=== PATIENT | female | born 1965 | race Caucasian/White ===

== ENCOUNTER 2016-09-04 10:34 | Emergency (ER) | payer MEDICAID ==
--- OUTSIDE RECORDS SUMMARY | 2016-09-04 10:51 | XMS REPORT | Continuity of Care Document ---
:1965 Author Organization [facility] ([facility]) Address [address] [place] [address] Phone [phone] Care Team Providers Name Role Phone Unavailable Primary Care Provider Unavailable Source Comments This disclosure is being made pursuant to the Care Everywhere program, applicable federal and state laws, and may not contain all informaitonavailable regarding this patient.[facility] ([facility]) Active Allergies and Adverse Reactions Not on File Current Medications Not on file Active Problems Not on file Social History Tobacco Use Types Packs/Day Years Used Date Never Assessed Last Filed Vital Signs Vital Sign Reading Time Taken Blood Pressure - - Pulse - - Temperature - - Respiratory Rate - - Height 1.6 m (5' 3") 07/25/2003 5:45 PM [employer] Weight 70.308 kg (155 lb) 07/25/2003 5:45 PM [employer] SE[employer] Body Mass Index 27.46 07/25/2003 5:45 PM [employer] SEAL[employer] Oxygen Saturation - - Plan of Care Health Maintenance Due Date Last Done Comments Hepatitis B Vaccine (1 of 3 - Primary Series) 1965 Tdap Vaccine 11/09/1978 Lipid Disorder Screening 11/09/1985 MMR Vaccine 11/09/1985 Td Vaccine 11/09/1985 Cervical Cancer Screening 11/09/1997 Mammogram 2007 Influenza Vaccine: Seasonal (#1) 11/29/2015 Results from Last 3 Months Not on file
[2016-09-04 11:22] LABS: Hematocrit 40.8 % (37.0-47.0); Hemoglobin 14.1 gm/dL (12.5-16.0); Mean Cell Volume 89.3 fl (78-100); Mean Corpuscular Hemoglobin 30.9 pg (27-31); Mean Corpuscular Hgb Conc 34.6 g/dl (32-36); Mean Platelet Volume 11.5 fl (6.0-9.5); Neutrophil # 5.4 K/mm3 (1.3-6.0); Neutrophil % 66.2 % (42-75.0); Platelet Count 152 K/mm3 (150-450); Red Blood Count 4.57 M/mm3 (4.2-5.4); Red Cell Distribution Width 12.7 % (11.5-14.0); White Blood Count 8.2 K/mm3 (4.0-10.5)
[2016-09-04 11:39] LABS: Albumin * 3.9 gm/dl (3.4-5.0); Anion Gap 16.6 mmol/L (6.8-13.8); BUN/Creatinine Ratio 11.8 (9.0-21.6); Bilirubin, Total 0.4 mg/dL (0.0-1.1); Ca. Corrected For Albumin 8.7 mg/dL (8.4-10.2); Calcium * 8.9 mg/dL (7.9-10.9); Carbon Dioxide 24.1 mmol/L (24-32.6); Potassium 3.7 mmol/L (3.4-4.6); Total Protein 7.5 gm/dL (6.2-8.2); Troponin I 0.041 ng/ml (0.00-0.10)
--- NOTE | 2016-09-04 12:17 | ERNOTE ---
Chest Pain/Cardiac HPI Date of Service: 09/04/16 Chief Complaint: Chest Pain Time Seen by Provider: 09/04/16 10:45 Source: patient Exam Limitations: no limitations Immunizations: IMMUNIZATION HX Immunizations Up to Date Yes History of Influenza Vaccine Yes Hx Pneumococcal Vaccination No Allergies/Adverse Reactions: Allergies carisoprodol Allergy (Verified 09/04/16 10:44) codeine [Codeine] Allergy (Verified 09/04/16 10:44) gemfibrozil Allergy (Verified 09/04/16 10:44) ibuprofen Allergy (Verified 09/04/16 10:44) loratadine Allergy (Verified 09/04/16 10:44) risperidone [From Risperdal] Allergy (Verified 09/04/16 10:44) azithromycin Adverse Reaction (Intermediate, Verified 09/04/16 10:44) Other Home Medications: HOME MEDICATIONS ALPRAZolam [Xanax] 0.5 mg PO BID PRN 01/20/14 [Last Taken Unknown] Albuterol Sulfate [Albuterol Sulfate 2.5 MG/0.5ML] 1 vial IH Q4H PRN 01/20/14 [ Last Taken Unknown] Famotidine [Pepcid AC] 20 mg PO BID 01/20/14 [Last Taken Unknown] Fluticasone Propionate [Flonase] 1 spray NS BID 01/20/14 [Last Taken Unknown] Fluticasone/Salmeterol [Advair 250-50 Diskus] 1 puff IH BID 01/20/14 [Last Taken Unknown] Oxybutynin Chloride [Ditropan] 5 mg PO TID 01/20/14 [Last Taken Unknown] Zolpidem Tartrate [Ambien] 5 mg PO HS PRN 01/20/14 [Last Taken Unknown] Diphenhydramine HCl [[place]] 50 mg PO Q6H PRN #40 tablet 05/28/14 [Last Taken Unknown] Cetirizine HCl [Zyrtec] 10 mg PO DAILY 02/02/15 [Last Taken Unknown] Tiotropium [place] [Spiriva] 1 cap IH DAILY 02/02/15 [Last Taken Unknown] Cyclobenzaprine HCl [Flexeril] 10 mg PO TID PRN #30 tab 12/24/15 [Last Taken Unknown] oxyCODONE HCL/ACETAMINOPHEN [Percocet 5 MG/325 MG] 1 tab PO Q4H PRN #20 tab [Last Taken Unknown] Narrative: Patient presents to the ED for chest pain. She relates she has been having chest pains for 2 months now. Daily. 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 She stopped that after a few weeks but the Sx never went away. She relates chest tightness and SOB with exertion and she feels this up into her neck. This has been daily and is worse with exertion. This is prolonged adn constant but worse with exertion. No fever or increased cough. She has never had a CP work up and was scheduled for a stress test in the past but couldn't get there so missed this testing. SHe did not have a ride to get here so wanted several weeks to be seen. Timing: constant, other - fluctuating intensity Severity/Quality: moderate Location: central Activities at Onset: none Modifying Factors - Improves: Present: nothing Modifying Factors - Worsens: Present: exercise Associated Symptoms: Present: shortness of breath. Absent: headache, cough, fever/chills, vomiting, abdominal pain Prior Chest Pain/Cardiac Workup: Reports: no prior cardiac workup Prior Treatment: Denies: recently seen Review of Systems - Review of Systems Constitutional: Absent: fever Respiratory: Present: See HPI Cardiology: Present: See HPI Gastrointestinal/Abdominal: Absent: abdominal pain Neurological: Absent: weakness All Other Systems: All systems neg except as marked - Patient's Past Medical History Patient History - Medical: Anxiety, Bipolar, Chronic Pain, Depression, GERD, Obesity Patient History - Cardiac/Respiratory: COPD Patient History - Cancer: Cervical Patient History - Surgical Procedures: D & C, Tubal Ligation, T & A, Other Patient History - Other: Other LMP (females 10-50): other - Family History Mother Family History - Medical: Family History - Cardiac/Respiratory: CHF, COPD Father Family History - Medical: Family History - Cardiac/Respiratory: Cardiac Arrest, Other - Social History Living Situations: home Abuse History: Hx of Substance Use Psych History: Hx of Anxiety, Hx of Depression, Current tx/ever been on anti- depressants or anti-anxiety meds Smoking Status: Current every day smoker Alcohol Use: none Drug Use: none - Immunizations Immunizations Up to Date: Yes Hx Pneumococcal Vaccination: No History of Influenza Vaccine: Yes Physical Exam - Physical Exam General Appearance: Present: alert, no apparent distress Eye Exam: Normal inspection: bilateral, PERRL: bilateral Ears, Nose, Throat: Present: normal ENT inspection Neck: Present: normal inspection Respiratory: Present: no respiratory distress, normal breath sounds, no accessory muscle use Cardiovascular/Chest: Present: regular rate, rhythm, normal peripheral pulses Gastrointestinal/Abdominal: Present: normal bowel sounds, nontender, soft Back Exam: Present: normal range of motion Extremity Exam: Present: normal inspection, other - she has some trace edema that she states in normal for her. No calf pain, no DVT Sx. Neurological Exam: Present: alert, normal mood/affect, no motor/sensory deficits Skin Exam: Present: normal color, warm/dry. Absent: skin rash ED Progress - Results and Orders Patient's Lab Results:: I have reviewed the patient's lab results. - Vital Signs Patient's Vital Signs:: I have reviewed the patient's vital signs. Vital Signs: Vital Signs 09/04/16 09/04/16 09/04/16 10:37 11:04 11:24 Temperature 37.2 C 36.9 C Pulse Rate 82 94 84 Respiratory 16 24 H 14 Rate Blood Pressure 169/85 169/85 128/82 O2 Sat by Pulse 97 95 97 Oximetry - EKG EKG: NSR EKG read: Interp. by me EKG Comments: Non-specific changes. No STEMI. Rate 87. - X-Ray X-Ray #1 X-Ray: chest Interpretation: Interp. by me X-ray Comments: I reviewed official radiology report. - Progress/Reassessment Chief Complaint: Chest Pain Progress Note-Subjective: 09/04/16 12:10 Atypical CP but Hx of CAD in family and no prior stress stress testing. No evidence of PE or aortic dissection clinically, d-dimer in normal range, no indication for CT. No evidence of ACS with prolonged constant Sx and negative trop. No other clear etiology. She has difficulty getting ot the hospital and needs a stress test in further w/u. I spoke with Dr Calles who was kind enough to do stress testing today. She will be discharged to stress testing. I was informed by nursing that policy here is to discharge the patient from the ED to go to stress testing which will be done. 09/04/16 12:16 Departure - Departure Clinical Impression: Atypical chest pain Disposition: Home self-care Condition: Stable Additional Instructions: You will go to stress testing today. Follow-up will be determined based on your stress test result. Return if your condition worsens or changes in any way. Referrals: Sheryl Tillman FNP [Primary Care Provider] -
[2016-09-04] MEDS ORDERED: PANTOPRAZOLE SODIUM 40 MG TABLET.EC PO ONE (16:43)
[2016-09-04 21:19] VITALS: BP 115/67
== END 2016-09-04 17:05 | disposition home or self-care (01) ==
LOC: ER 10:34
DX: R07.89 Other chest pain (principal); Z72.0 Tobacco use; Z85.41 Personal history of malignant neoplasm of cervix uteri; F41.8 Other specified anxiety disorders; G89.29 Other chronic pain; K21.9 Gastro-esophageal reflux disease without esophagitis; J44.9 Chronic obstructive pulmonary disease, unspecified
CPT/HCPCS: 36415; 71020; 78452; 80053; 83690; 84484; 85025; 85379; 93005; 93017; 99284; A9502

== ENCOUNTER 2016-10-24 15:34 | Emergency (ER) | payer MEDICAID ==
[2016-10-24] MEDS ORDERED: KETOROLAC TROMETHAMINE 60 MG/2 ML VIAL IM ONE ×2 (16:12→16:17)
[2016-10-24] MEDS ORDERED: DIAZEPAM 5 MG/ML SYRG IM ONE (16:12)
[2016-10-24] MEDS ORDERED: DIAZEPAM 5 MG/ML SYRG ONE (16:17)
--- NOTE | 2016-10-24 16:17 | ERNOTE ---
Back Pain ER HPI Date of Service: 10/24/16 Presenting Symptoms: injury/pain to back, hx chronic back pain Time Seen by Provider: 10/24/16 15:52 Source: patient, RN notes reviewed, past records Exam Limitations: no limitations Immunizations: IMMUNIZATION HX Immunizations Up to Date Yes History of Influenza Vaccine Yes Hx Pneumococcal Vaccination No Allergies/Adverse Reactions: Allergies carisoprodol Allergy (Verified 10/24/16 15:44) codeine [Codeine] Allergy (Verified 10/24/16 15:44) gemfibrozil Allergy (Verified 10/24/16 15:44) ibuprofen Allergy (Verified 10/24/16 15:44) loratadine Allergy (Verified 10/24/16 15:44) risperidone [From Risperdal] Allergy (Verified 10/24/16 15:44) azithromycin Adverse Reaction (Intermediate, Verified 10/24/16 15:44) Other Home Medications: HOME MEDICATIONS ALPRAZolam [Xanax] 0.5 mg PO BID PRN 01/20/14 [Last Taken Unknown] Albuterol Sulfate [Albuterol Sulfate 2.5 MG/0.5ML] 1 vial IH Q4H PRN 01/20/14 [ Last Taken Unknown] Famotidine [Pepcid AC] 20 mg PO BID 01/20/14 [Last Taken Unknown] Fluticasone Propionate [Flonase] 1 spray NS BID 01/20/14 [Last Taken Unknown] Fluticasone/Salmeterol [Advair 250-50 Diskus] 1 puff IH BID 01/20/14 [Last Taken Unknown] Oxybutynin Chloride [Ditropan] 5 mg PO TID 01/20/14 [Last Taken Unknown] Zolpidem Tartrate [Ambien] 5 mg PO HS PRN 01/20/14 [Last Taken Unknown] Cetirizine HCl [Zyrtec] 10 mg PO DAILY 02/02/15 [Last Taken Unknown] Tiotropium [place] [Spiriva] 1 cap IH DAILY 02/02/15 [Last Taken Unknown] Cyclobenzaprine HCl [Flexeril] 10 mg PO TID PRN #30 tab 12/24/15 [Last Taken Unknown] HYDROcodone/ACETAMINOPHEN [[place] 5-325] 1 - 2 tab PO Q6H PRN #16 tab 10/24/16 [ Last Taken Unknown] Narrative: 50 y/o female ambulatory to the ED for low back pain that began approximately 5 days ago when she "twisted wrong" while showering. She is having pain in her right lumbar region radiating in to her right hip and leg. She has a history of chronic back pain. She saw her PCP a week ago. She was prescribed Flexeril and instructed to contact her back specialist. She has only been taking the Flexeril at bedtime. She has been taking aspirin for pain. She reports being allergic to ibuprofen but has taken Toradol in the past without incident. She reports that she has not been able to see her back specialist because of issues with transportation. Quality/Severity: Reports: severe, aching, dullness Location of pain: Reports: lower back, radiating to rt thigh/leg Activities at Onset: Reports: activity Recent Injury?: Reports: possibly Possible Precipitating Factor: Reports: turning/bending Modifying Factors - (Improves): Reports: nothing Modifying Factors - (Worsens): Reports: supine position Associated Symptoms: Reports: sweating. Denies: fever/chills, constipation/ incontinence, nausea/vomiting, problems urinating, difficulty walking, numbess/ weakness in legs Review of Systems - Review of Systems Constitutional: Absent: recent illness, fever, chills EYE: Present: no symptoms reported ENT: Present: no symptoms reported Respiratory: Present: cough. Absent: shortness of breath Cardiology: Present: no symptoms reported Gastrointestinal/Abdominal: Absent: nausea, vomiting, abdominal pain Genitourinary: Absent: dysuria, hematuria Musculoskeletal: Present: back pain, muscle pain. Absent: neck pain, joint pain , joint swelling Skin: Absent: rash, lesions, lumps Neurological: Present: tingling. Absent: headache, dizziness/light-headedness, weakness, numbness Endocrine: Present: no symptoms reported Hematologic/Lymphatic: Present: no symptoms reported Psych: Present: anxiety - Patient's Past Medical History Patient History - Medical: Anxiety, Bipolar, Chronic Pain, Depression, GERD, Obesity Patient History - Cardiac/Respiratory: COPD Patient History - Cancer: Cervical Patient History - Surgical Procedures: D & C, Tubal Ligation, T & A, Other Patient History - Other: Other LMP (females 10-50): 5-6 year - Family History Mother Family History - Medical: Family History - Cardiac/Respiratory: CHF, COPD Father Family History - Medical: Family History - Cardiac/Respiratory: Cardiac Arrest, Other - Social History Living Situations: home Abuse History: Hx of Substance Use Psych History: Hx of Anxiety, Hx of Depression, Current tx/ever been on anti- depressants or anti-anxiety meds Smoking Status: Current every day smoker Alcohol Use: none Drug Use: none - Immunizations Immunizations Up to Date: Yes Hx Pneumococcal Vaccination: No History of Influenza Vaccine: Yes Physical Exam - Physical Exam General Appearance: Present: alert, mild distress, anxious, obese Neck: Present: normal inspection, nontender, supple, full range of motion Respiratory: Present: no respiratory distress, no accessory muscle use, expiration (prolonged), wheezing - mild Cardiovascular/Chest: Present: regular rate, rhythm, no murmur, normal peripheral pulses Peripheral Pulses: N=norm/S=strong/W=weak/B=bound/A=absent: Dorsalis-pedis (R): Strong, Dorsalis-pedis (L): Strong Back Exam: Present: no CVA tenderness, no vertebral tenderness, decreased range of motion, other - Right lumbar region paraspinal muscle tenderness with palpation Extremity Exam: Present: normal inspection, normal range of motion Neurological Exam: Present: alert, oriented, normal mood/affect, no motor/ sensory deficits, other - normal lower extremity strength against resistance DTR: N=norm/NB=norm/brisk/A=abs/DD=dull/dimin/HC=hyperactive: Knee (R): Normal/ Brisk, Knee (L): Normal/Brisk Skin Exam: Present: normal color, warm/dry ED Progress - Vital Signs Patient's Vital Signs:: I have reviewed the patient's vital signs. Vital Signs: Vital Signs 10/24/16 15:36 Temperature 37.2 C Pulse Rate 100 Respiratory 22 H Rate Blood Pressure 166/79 O2 Sat by Pulse 96 Oximetry - Progress/Reassessment Chief Complaint: Back Pain Progress:: Improved Departure Clinical Impression: Low back pain Qualifiers: Chronicity: acute Back pain laterality: right Sciatica presence: with sciatica Sciatica laterality: sciatica of right side Qualified Code(s): M54.41 - Lumbago with sciatica, right side - Departure Disposition: Home Follow Up Needed Condition: Stable Instructions: Back Pain, Adult, [id number] Additional Instructions: Take Flexeril 3 times a day Talk to Sheryl about physical therapy or possibly seeing a back specialist in [place] Referrals: Sheryl Tillman, I[employer] TRA[employer]ER [Primary Care Provider] - Prescriptions: HYDROcodone/ACETAMINOPHEN [[place] 5-325] 1 - 2 tab PO Q6H PRN #16 tab PRN Reason: Pain
[2016-10-24 16:45] VITALS: BP 158/70
== END 2016-10-24 16:43 | disposition home or self-care (01) ==
LOC: ER 15:34
DX: M54.41 Lumbago with sciatica, right side (principal); Z85.41 Personal history of malignant neoplasm of cervix uteri; J44.9 Chronic obstructive pulmonary disease, unspecified; F41.9 Anxiety disorder, unspecified; F17.200 Nicotine dependence, unspecified, uncomplicated

== ENCOUNTER 2017-02-01 21:32 | Emergency (ER) | payer MEDICAID ==
--- NOTE | 2017-02-01 22:25 | ERNOTE ---
Time Seen by Provider: 02/01/17 22:11 Stated Complaint: URI SYMPTOMS Presenting Symptoms:: cough Source: patient Immunizations: IMMUNIZATION HX Immunizations Up to Date No History of Influenza Vaccine No Hx Pneumococcal Vaccination No Allergies/Adverse Reactions: Allergies carisoprodol Allergy (Verified 02/01/17 21:35) codeine [Codeine] Allergy (Verified 02/01/17 21:35) gemfibrozil Allergy (Verified 02/01/17 21:35) ibuprofen Allergy (Verified 02/01/17 21:35) loratadine Allergy (Verified 02/01/17 21:35) risperidone [From Risperdal] Allergy (Verified 02/01/17 21:35) azithromycin Adverse Reaction (Intermediate, Verified 02/01/17 21:35) Other Home Medications: HOME MEDICATIONS ALPRAZolam [Xanax] 0.5 mg PO BID PRN 01/20/14 [Last Taken Unknown] Albuterol Sulfate [Albuterol Sulfate 2.5 MG/0.5ML] 1 vial IH Q4H PRN 01/20/14 [ Last Taken Unknown] Famotidine [Pepcid AC] 20 mg PO BID 01/20/14 [Last Taken Unknown] Fluticasone Propionate [Flonase] 1 spray NS BID 01/20/14 [Last Taken Unknown] Fluticasone/Salmeterol [Advair 250-50 Diskus] 1 puff IH BID 01/20/14 [Last Taken Unknown] Oxybutynin Chloride [Ditropan] 5 mg PO TID 01/20/14 [Last Taken Unknown] Zolpidem Tartrate [Ambien] 5 mg PO HS PRN 01/20/14 [Last Taken Unknown] Cetirizine HCl [Zyrtec] 10 mg PO DAILY 02/02/15 [Last Taken Unknown] Tiotropium [place] [Spiriva] 1 cap IH DAILY 02/02/15 [Last Taken Unknown] Cyclobenzaprine HCl [Flexeril] 10 mg PO TID PRN #30 tab 12/24/15 [Last Taken Unknown] HYDROcodone/ACETAMINOPHEN [[place] 5-325] 1 - 2 tab PO Q6H PRN #16 tab 10/24/16 [ Last Taken Unknown] Amoxicillin 875 mg PO BID #20 tablet 02/01/17 [Last Taken Unknown] Atorvastatin Calcium [Lipitor] 20 mg PO DAILY 02/01/17 [Last Taken Unknown] - History of Present Ilness Narrative: Pt has been coughing for approx 2 weeks, accompanied by nasal discharge and increased sputum production Timing: getting worse Severity: moderate Frequency/Possible Cause: Reports: occasional episodes Modifying Factors - Worsens: Reports: activity, deep breath, lying down Associated Symptoms: Reports: wheezing, nasal congestion, nasal drainage Review of Systems - Review of Systems Constitutional: Present: recent illness, fatigue. Absent: fever, chills EYE: Present: no symptoms reported ENT: Present: nose congestion, nasal drainage Respiratory: Present: See HPI, orthopnea Cardiology: Present: no symptoms reported Gastrointestinal/Abdominal: Present: no symptoms reported Genitourinary: Present: no symptoms reported Musculoskeletal: Present: no symptoms reported Skin: Present: no symptoms reported Neurological: Present: no symptoms reported Endocrine: Present: no symptoms reported Hematologic/Lymphatic: Present: no symptoms reported Psych: Present: no symptoms reported - Patient's Past Medical History Patient History - Medical: Anxiety, Bipolar, Chronic Pain, Depression, GERD, Obesity Patient History - Cardiac/Respiratory: COPD Patient History - Cancer: Cervical Patient History - Surgical Procedures: D & C, Tubal Ligation, T & A, Other Patient History - Other: Other LMP (females 10-50): last week LMP (Calendar): 01/28/17 - Family History Mother Family History - Medical: Family History - Cardiac/Respiratory: CHF, COPD Father Family History - Medical: Family History - Cardiac/Respiratory: Cardiac Arrest, Other - Social History Living Situations: home Abuse History: Hx of Substance Use Psych History: Hx of Anxiety, Hx of Depression, Current tx/ever been on anti- depressants or anti-anxiety meds Smoking Status: Current every day smoker Have you smoked in the past 12 months: Yes Do you dip or chew tobacco: No Alcohol Use: none Drug Use: none - Immunizations Immunizations Up to Date: No Hx Pneumococcal Vaccination: No History of Influenza Vaccine: No Physical Exam - Physical Exam General Appearance: Present: wd/wn, alert, no apparent distress Head Exam: Present: normal inspection, no evidence of injury Eye Exam: Normal inspection: bilateral Ears, Nose, Throat: Present: nasal congestion, sinus pain/drainage Neck: Present: normal inspection, nontender Respiratory: Present: no respiratory distress, no accessory muscle use, crackles , wheezing Cardiovascular/Chest: Present: regular rate, rhythm, no murmur Back Exam: Present: normal inspection, normal range of motion, no vertebral tenderness Extremity Exam: Present: normal inspection, normal range of motion, no edema Neurological Exam: Present: alert, oriented, normal mood/affect Skin Exam: Present: normal color, warm/dry ED Progress - Results and Orders Patient's Lab Results:: I have reviewed the patient's lab results. Results and Orders: Laboratory Tests 02/01/17 22:39 WBC 8.9 Hgb 14.7 Hct 43.1 Plt Count 165 - Vital Signs Vital Signs: Vital Signs 02/01/17 21:36 Temperature 36.3 C L Pulse Rate 76 Respiratory 16 Rate Blood Pressure 144/81 O2 Sat by Pulse 96 Oximetry - X-Ray X-Ray #1 X-Ray: chest Interpretation: Interp. by ks X-ray Comments: mild hyperinflation, no infiltrate or effusion - Progress/Reassessment Chief Complaint: Cough Departure Clinical Impression: Acute exacerbation of COPD with asthma - Departure Disposition: Home Follow Up Needed Condition: Good Instructions: Chronic Obstructive Pulmonary Disease Exacerbation, [id number] Prescriptions: Amoxicillin 875 mg PO BID #20 tablet
[2017-02-01 22:43] LABS: Hematocrit 43.1 % (37.0-47.0); Hemoglobin 14.7 gm/dL (12.5-16.0); Mean Cell Volume 91.7 fl (78-100); Mean Corpuscular Hemoglobin 31.3 pg (27-31); Mean Corpuscular Hgb Conc 34.1 g/dl (32-36); Mean Platelet Volume 11.6 fl (6.0-9.5); Neutrophil # 6.5 K/mm3 (1.3-6.0); Neutrophil % 73.7 % (42-75.0); Platelet Count 165 K/mm3 (150-450); Red Cell Distribution Width 12.8 % (11.5-14.0); White Blood Count 8.9 K/mm3 (4.0-10.5)
[2017-02-01 22:47] VITALS: BP 144/68
[2017-02-01] MEDS ORDERED: AMOXICILLIN TRIHYDRATE 250 MG CAPSULE PO ONE (22:58)
[2017-02-01] MEDS ORDERED: AMOXICILLIN TRIHYDRATE 250 MG CAPSULE ONE (22:59)
== END 2017-02-01 23:04 | disposition home or self-care (01) ==
LOC: ER 21:32
DX: J44.1 Chronic obstructive pulmonary disease with (acute) exacerbation (principal); F17.200 Nicotine dependence, unspecified, uncomplicated; Z85.41 Personal history of malignant neoplasm of cervix uteri; F41.9 Anxiety disorder, unspecified; F32.9 Major depressive disorder, single episode, unspecified; K21.9 Gastro-esophageal reflux disease without esophagitis

== ENCOUNTER 2017-02-25 23:05 | Emergency (ER) | payer MEDICAID ==
[2017-02-25] MEDS ORDERED: MORPHINE SULFATE 4 MG/ML SYRG IV ONE (23:33)
[2017-02-25] MEDS ORDERED: DICYCLOMINE HCL 10 MG/ML AMPUL IM ONE ×2 (23:33→23:37)
[2017-02-25] MEDS ORDERED: NORMAL SALINE 1,000 ML IV ONE (23:34)
[2017-02-25] MEDS ORDERED: ONDANSETRON HCL/PF 2 MG/ML VIAL IV ONE (23:36)
[2017-02-25] MEDS ORDERED: ONDANSETRON HCL/PF 2 MG/ML VIAL ONE (23:37)
[2017-02-25] MEDS ORDERED: MORPHINE SULFATE 4 MG/ML SYRG ONE (23:37)
--- NOTE | 2017-02-25 23:52 | ERNOTE ---
Abdominal HPI - Narrative Date of Service: 02/25/17 - General Chief Complaint: Abdominal Pain Time Seen by Provider: 02/25/17 23:32 Source: patient - Immun/Allergies/Home Medications Immunizatons: IMMUNIZATION HX Immunizations Up to Date Yes History of Influenza Vaccine Yes Hx Pneumococcal Vaccination No Allergies/Adverse Reactions: Allergies carisoprodol Allergy (Verified 02/25/17 23:24) codeine [Codeine] Allergy (Verified 02/25/17 23:24) gemfibrozil Allergy (Verified 02/25/17 23:24) ibuprofen Allergy (Verified 02/25/17 23:24) loratadine Allergy (Verified 02/25/17 23:24) risperidone [From Risperdal] Allergy (Verified 02/25/17 23:24) azithromycin Adverse Reaction (Intermediate, Verified 02/25/17 23:24) Other Home Medications: HOME MEDICATIONS ALPRAZolam [Xanax] 0.5 mg PO BID PRN 01/20/14 [Last Taken Unknown] Albuterol Sulfate [Albuterol Sulfate 2.5 MG/0.5ML] 1 vial IH Q4H PRN 01/20/14 [ Last Taken Unknown] Famotidine [Pepcid AC] 20 mg PO BID 01/20/14 [Last Taken Unknown] Fluticasone Propionate [Flonase] 1 spray NS BID 01/20/14 [Last Taken Unknown] Fluticasone/Salmeterol [Advair 250-50 Diskus] 1 puff IH BID 01/20/14 [Last Taken Unknown] Oxybutynin Chloride [Ditropan] 5 mg PO TID 01/20/14 [Last Taken Unknown] Zolpidem Tartrate [Ambien] 5 mg PO HS PRN 01/20/14 [Last Taken Unknown] Cetirizine HCl [Zyrtec] 10 mg PO DAILY 02/02/15 [Last Taken Unknown] Tiotropium [place] [Spiriva] 1 cap IH DAILY 02/02/15 [Last Taken Unknown] Cyclobenzaprine HCl [Flexeril] 10 mg PO TID PRN #30 tab 12/24/15 [Last Taken Unknown] HYDROcodone/ACETAMINOPHEN [[place] 5-325] 1 - 2 tab PO Q6H PRN #16 tab 10/24/16 [ Last Taken Unknown] Amoxicillin 875 mg PO BID #20 tablet 10/05/17 [Last Taken Unknown] Atorvastatin Calcium [Lipitor] 20 mg PO DAILY 02/01/17 [Last Taken Unknown] Dicyclomine HCl [Bentyl] 20 mg PO Q6H PRN #20 tablet 02/26/17 [Last Taken Unknown] HYDROcodone/ACETAMINOPHEN [[place] 5-325] 1 each PO Q4H PRN #10 tablet 02/26/17 [ Last Taken Unknown] Ondansetron HCl [Zofran] 8 mg PO Q6H PRN #12 tablet 02/26/17 [Last Taken Unknown ] - History of Present Illness Narrative: This is a 51-year-old female who comes to the emergency department with a day and a half of nausea vomiting diarrhea abdominal pain. The patient says that at 5 PM on Sunday she ate some shrimp at a restaurant. Half an hour later she noted that she was having crampy abdominal pain and started vomiting. She has had persistent vomiting since then. Cannot keep anything down. She also started to develop diarrhea shortly after that. She denies fever or chills. She denies any recent sick contacts. She says that she had food poisoning 20 years ago and that it felt just like this. He denies chest pain shortness of breath or blood in her urine or blood in her stool Review of Systems - Review of Systems Constitutional: Present: no symptoms reported EYE: Present: no symptoms reported ENT: Present: no symptoms reported Respiratory: Present: no symptoms reported Cardiology: Present: no symptoms reported Gastrointestinal/Abdominal: Present: nausea, vomiting, diarrhea, abdominal pain , eating less, drinking less Genitourinary: Present: no symptoms reported Musculoskeletal: Present: no symptoms reported Skin: Present: no symptoms reported Neurological: Present: no symptoms reported Endocrine: Present: no symptoms reported Hematologic/Lymphatic: Present: no symptoms reported Psych: Present: no symptoms reported All Other Systems: All systems neg except as marked - Patient's Past Medical History Patient History - Medical: Anxiety, Bipolar, Chronic Pain, Depression, GERD, Obesity Patient History - Cardiac/Respiratory: COPD Patient History - Cancer: Cervical Patient History - Surgical Procedures: D & C, Tubal Ligation, T & A, Other Patient History - Other: Other - Family History Mother Family History - Medical: Family History - Cardiac/Respiratory: CHF, COPD Father Family History - Medical: Family History - Cardiac/Respiratory: Cardiac Arrest, Other - Social History Living Situations: home Abuse History: Hx of Substance Use Psych History: Hx of Anxiety, Hx of Depression, Current tx/ever been on anti- depressants or anti-anxiety meds Smoking Status: Current every day smoker Patient requests Smoking Cessation Consult: No Initiate information on Smoking Cessation: No - Immunizations Immunizations Up to Date: Yes Hx Pneumococcal Vaccination: No History of Influenza Vaccine: Yes Physical Exam - Physical Exam General Appearance: Present: wd/wn, alert, other - patient is rolling around on the bed crying in discomfort. Head Exam: Present: normal inspection, no evidence of injury Eye Exam: Normal inspection: bilateral, PERRL: bilateral, EOMI: bilateral Ears, Nose, Throat: Present: normal ENT inspection, normal pharynx Neck: Present: normal inspection, nontender Respiratory: Present: no respiratory distress, normal breath sounds, lungs clear Cardiovascular/Chest: Present: regular rate, rhythm, no murmur Gastrointestinal/Abdominal: Present: soft, other - abdomen is distended. Back Exam: Present: normal inspection, normal range of motion, no vertebral tenderness Extremity Exam: Present: normal inspection, non-tender, normal range of motion, no edema Neurological Exam: Present: alert, oriented, normal mood/affect, no motor/ sensory deficits Skin Exam: Present: normal color, warm/dry Lymphatic Exam: Present: no adenopathy ED Progress - Results and Orders Patient's Lab Results:: I have reviewed the patient's lab results. - Vital Signs Patient's Vital Signs:: I have reviewed the patient's vital signs. Vital Signs: Vital Signs 02/25/17 23:20 Temperature 36.7 C Pulse Rate 100 Respiratory 20 Rate Blood Pressure 156/101 O2 Sat by Pulse 96 Oximetry - X-Ray X-Ray #1 X-Ray: abdomen Interpretation: Interp. by me X-ray Comments: Nonspecific bowel gas pattern. Stool throughout the colon - Progress/Reassessment Chief Complaint: Abdominal Pain Plan - Plan Plan: The patient's labs are all essentially normal. X-ray is nondiagnostic. I do not have enough evidence at this time to justify performing a CAT scan of the abdomen and pelvis with it's related risks. I'm going to give the patient Bentyl as well as Zofran. I've discussed with her taking Zofran before trying to take anything by mouth. She'll start with clear liquids advance to bland foods and then go back to regular diet. The patient is aware that although the tests do not show anything significantly abnormal this does not mean that there is nothing wrong. I related that in fact I suspect her symptoms represent a stomach virus. If this is the case she should start getting better within 24 hours. She will call her family doctor and set up a follow-up appointment. She will return for new concerning symptoms Departure Clinical Impression: Gastroenteritis - Departure Disposition: Home self-care Condition: Fair Instructions: Viral Gastroenteritis, Adult, [id number] Additional Instructions: As we discussed all of the labs and studies done here did not show a definite cause for her symptoms. This does not mean that there is nothing wrong, only that we are unable to determine the cause of your symptoms with our tests here in the emergency department. I suspect that you have a viral infection of your stomach. Your body should fight this off in 24 hours or so. Take the prescribed Bentyl to help with severe cramps. Take the prescribed Zofran to help with nausea. Take the nausea medicine before you eat or drink anything. I want you to start with clear liquids. After that you can advance to bland foods after 12 hours. Once she was keeping those may advance to regular food after an additional 12 hours. Call your family doctor and set up a follow-up appointment. Return for new or worrisome symptoms Prescriptions: Dicyclomine HCl [Bentyl] 20 mg PO Q6H PRN #20 tablet PRN Reason: Pain HYDROcodone/ACETAMINOPHEN [[place] 5-325] 1 each PO Q4H PRN #10 tablet PRN Reason: Pain Ondansetron HCl [Zofran] 8 mg PO Q6H PRN #12 tablet PRN Reason: Nausea
[2017-02-25 23:54] LABS: Hematocrit 45.8 % (37.0-47.0); Hemoglobin 15.5 gm/dL (12.5-16.0); Mean Cell Volume 91.2 fl (78-100); Mean Corpuscular Hemoglobin 30.9 pg (27-31); Mean Corpuscular Hgb Conc 33.8 g/dl (32-36); Mean Platelet Volume 12.1 fl (6.0-9.5); Neutrophil # 7.6 K/mm3 (1.3-6.0); Neutrophil % 73.2 % (42-75.0); Platelet Count 138 K/mm3 (150-450); Red Blood Count 5.02 M/mm3 (4.2-5.4); Red Cell Distribution Width 12.6 % (11.5-14.0); White Blood Count 10.3 K/mm3 (4.0-10.5)
[2017-02-26 00:09] LABS: Albumin * 4.1 gm/dl (3.4-5.0); Anion Gap 15.1 mmol/L (6.8-13.8); BUN/Creatinine Ratio 11.1 (9.0-21.6); Bilirubin, Total 1.2 mg/dL (0.0-1.1); Ca. Corrected For Albumin 8.9 mg/dL (8.4-10.2); Calcium * 9.3 mg/dL (7.9-10.9); Carbon Dioxide 25.7 mmol/L (24-32.6); Potassium 3.8 mmol/L (3.4-4.6); Total Protein 7.8 gm/dL (6.2-8.2)
[2017-02-26] MEDS ORDERED: HYDROcodone/ACETAMINOPHEN 1 EACH TABLET PO ONE (01:06)
[2017-02-26] MEDS ORDERED: ONDANSETRON 4 MG TAB.RAPDIS PO ONE (01:06)
[2017-02-26] MEDS ORDERED: DICYCLOMINE HCL 20 MG TABLET PO ONE (01:06)
[2017-02-26 01:11] LABS: Urine Bilirubin 1 mg/dl (NEGATIVE); Urine Ketone 5 mg/dL (NEGATIVE); Urine Nitrite Negative (NEGATIVE); Urine Protein 30 mg/dL (NEGATIVE); Urine Specific Gravity 1.025 SP.GR. (1.005-1.010); Urine Urobilinogen Normal (NORMAL)
[2017-02-26] MEDS ORDERED: HYDROcodone/ACETAMINOPHEN 1 EACH TABLET ONE (01:11)
[2017-02-26] MEDS ORDERED: ONDANSETRON 4 MG TAB.RAPDIS ONE (01:11)
[2017-02-26] MEDS ORDERED: DICYCLOMINE HCL 20 MG TABLET ONE (01:11)
[2017-02-26 01:21] LABS: Urine Appearance Slightly Cloudy; Urine Bacteria 1+; Urine Blood 5 /ul (NEGATIVE); Urine Color Dark Yellow; Urine Mucus Moderate - 2+; Urine RBC TRACE /hpf (0-5); Urine WBC 0-5 /hpf (0-5)
[2017-02-26 01:38] LABS: Cocaine Ur Negative (NEGATIVE); Urine Barbiturate Negative (NEGATIVE); Urine PCP Negative (NEGATIVE)
[2017-02-26 01:39] LABS: Urine Benzodiazepines Positive (NEGATIVE); Urine Opiates Positive (NEGATIVE); Urine THC Positive (NEGATIVE)
[2017-02-26 03:46] VITALS: BP 138/75
== END 2017-02-26 01:48 | disposition home or self-care (01) ==
LOC: ER 23:05
DX: K52.9 Noninfective gastroenteritis and colitis, unspecified (principal); Z85.41 Personal history of malignant neoplasm of cervix uteri; F17.200 Nicotine dependence, unspecified, uncomplicated
CPT/HCPCS: 36415; 74020; 80053; 80307; 81001; 83690; 85025; 96372; 96374; 96375; 99284; J2405

== ENCOUNTER 2017-04-12 06:49 | Day surgery (SDC) | payer MEDICAID ==
[~2017-04-12 06:49] MED LIST: RINGER'S SOLUTION,LACTATED 1,000 ML IV PRN
[2017-04-12] MEDS ORDERED: RINGER'S SOLUTION,LACTATED 1,000 ML IV ONE (07:30)
[2017-04-12] MEDS ORDERED: BUPIVACAINE HCL/EPINEPHRINE 50 ML VIAL IJ ONE ×2 (08:20)
--- NOTE | 2017-04-12 08:58 | OR ---
Operative Report - Dictated Report Narrative: Operative report: 04/12/2017 Preoperative diagnosis: Postmenopausal bleeding, thickened endometrial lining Postoperative diagnosis: Same with endometrial polyps Procedure: Hysteroscopy, D&C, polypectomy Surgeon: Elida Ochoa D.O. [employer]: OR staff Anesthesia: Local and sedation IV fluids: 300 [place]ers EBL: Minimal [place] Urine output: Not applicable Findings: Overall thickened endometrial lining, a thick patched noted on the anterior surface of the endometrial lining and 3 endometrial polyps noted at the posterior aspect of the cavity Drains: None Pathology: Endometrial curettings and polyps Complications: None Condition: Stable The patient was taken to the operating room. Anesthesia was found to be adequate. The patient was prepped and draped in the normal sterile fashion in the dorsal lithotomy position. A sterile speculum was then inserted into the vagina. The anterior lip of the cervix was then grasped with a single-tooth tenaculum. Local anesthetic was then injected in the cervix. The hysteroscope was then inserted into the cervix. Hydrodistention was then used to enter into the uterine cavity. The cavity was then surveyed and findings as noted above. The hysteroscopic scissors were then used to remove the polyps at the base and grasper was used to then remove the polyps from the cavity. The hysteroscope was then removed. The cervix was then sequentially dilated. A sharp curettage was then performed until the cry of the uterus was noted. Minimal bleeding was then noted from the cervix. Hysteroscopy was then performed and adequate curettage was noted throughout the entire cavity and no remaining polyps were seen in the cavity. The hysteroscope was then removed. The tenaculum was then removed. Hemostasis was noted. The speculum was then removed. All sponge lap and needle counts were correct 2. The patient was taken to the recovery room in stable condition.
[2017-04-12] MEDS ORDERED: oxyCODONE HCL/ACETAMINOPHEN 1 TAB TABLET PO PRN (09:32)
[2017-04-12] MEDS ORDERED: oxyCODONE HCL/ACETAMINOPHEN 1 TAB TABLET PO ONE (09:40)
[2017-04-12 10:29] VITALS: BP 137/71
== END 2017-04-12 06:50 | disposition home or self-care (01) ==
LOC: AMB 06:49
PROVIDERS: ATTEND Obstetrics & Gynecology Gynecologic Oncology
PROC: 0UDB7ZX Extraction of Endometrium, Via Natural or Artificial Opening, Diagnostic (ICD-10-PCS; 2017-04-12)
PROC: 0UB98ZX Excision of Uterus, Via Natural or Artificial Opening Endoscopic, Diagnostic (ICD-10-PCS; principal; 2017-04-12 08:00)
DX: C54.1 Malignant neoplasm of endometrium (principal); N95.0 Postmenopausal bleeding; J44.9 Chronic obstructive pulmonary disease, unspecified; K21.9 Gastro-esophageal reflux disease without esophagitis; E78.5 Hyperlipidemia, unspecified; F41.9 Anxiety disorder, unspecified; F32.9 Major depressive disorder, single episode, unspecified; G47.00 Insomnia, unspecified; F17.210 Nicotine dependence, cigarettes, uncomplicated; Z68.41 Body mass index [BMI] 40.0-44.9, adult